=== PATIENT | female | born 1965 | race Caucasian/White ===

== ENCOUNTER 2016-05-13 18:56 | Emergency (ER) | payer MEDICAID ==
[~2016-05-13] VITALS: Ht 180.3 cm; Wt 104.3 kg
[~2016-05-13 18:56] MED LIST: LOTENSIN40 MG PO; NORCO 10/325 MG1 TAB PO; ORETIC25 MG PO; TYLENOL PO
[2016-05-13 18:58] VITALS: BP 158/85
--- NOTE | 2016-05-13 19:36 | NUR ---
PT TAKEN TO [facility]
--- NOTE | 2016-05-13 19:37 | NUR ---
Dr. Ayon evaluating patient
--- NOTE | 2016-05-13 19:38 | NUR ---
PT IS A 51F BIB SELF C/O RT LOWER BACK, RADIATES DOWN RT KNEE, & NECK X 3 DAYS. PT STATES HAS BEEN IN ACCIDENTS AND WORK MAY HAVE CAUSED PAIN.
[2016-05-13] MEDS ORDERED: KETOROLAC 60 MG/2 ML VIAL IM ONE (19:40)
--- NOTE | 2016-05-13 20:21 | NUR ---
Patient discharged with v/s stable. Written and verbal after care instructions given and explained. Patient alert, oriented and verbalized understanding of instructions. Ambulatory with steady gait. All questions addressed prior to discharge. ID band removed. Patient advised to follow up with PMD. Rx of NAPROSYN 500MG PO given. Patient educated on indication of medication including possible reaction and side effects. Opportunity to ask questions provided and answered.
[2016-05-13 20:22] VITALS: BP 138/74
== END 2016-05-13 20:21 | disposition home or self-care (01) ==
LOC: MED 18:56
PROC: 3E033GC Introduction of Other Therapeutic Substance into Peripheral Vein, Percutaneous Approach (ICD-10-PCS; principal; 2016-05-13)
DX: M19.90 Unspecified osteoarthritis, unspecified site (principal); I10 Essential (primary) hypertension
CPT/HCPCS: 96372; 99283; J1885